=== PATIENT | male | born 2000 | race Caucasian/White ===

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

== ENCOUNTER 2024-11-13 15:56 | Emergency (ER) | payer OTHER ==
[~2024-11-13] VITALS: Ht 185.4 cm; Wt 77.1 kg
== END 2024-11-13 19:36 | disposition home or self-care (01) ==
LOC: ED 15:56
DX: S01.111A Laceration without foreign body of right eyelid and periocular area, initial encounter (principal); W22.09XA Striking against other stationary object, initial encounter; Y93.89 Activity, other specified; Y92.89 Other specified places as the place of occurrence of the external cause; Y99.8 Other external cause status